=== PATIENT | male | born 1965 | race Caucasian/White ===

== ENCOUNTER 2019-02-18 18:12 | Emergency (ER) | payer SELFPAY ==
[~2019-02-18] VITALS: Ht 175.3 cm; Wt 75.0 kg
--- NOTE | 2019-02-18 18:37 | NUR ---
PT PLACED ON HEART MONITOR, BP CUFF, PULSE OX. PT VERY ANXIOUS, DIFFICULT TO GET TO ANSWER QUESTIONS. PT STATES CP GONE, SLIGHT HEAVINESS TO MID CHEST REMAINS AND SOME EPIGASTRIC PAIN. EKG COMPLETED ON ARRIVAL. PT GIVEN WARM BLANKET, CALL LIGHT WITHIN REACH. PT MORE CALM AT THIS TIME. PT UPDATED ON POC.
[2019-02-18] MEDS ORDERED: ATOR-2 PO (18:42)
[2019-02-18] MEDS ORDERED: QUET25TA7 PO (18:42)
[2019-02-18] MEDS ORDERED: LEVO25TA4 PO (18:42)
[2019-02-18] MEDS ORDERED: PRAS5TAB3 PO (18:42)
[2019-02-18] MEDS ORDERED: ASPI-496 PO (18:42)
[2019-02-18] MEDS ORDERED: METF500T17 PO (18:42)
[2019-02-18 18:58] LABS: BASOPHILS # (AUTO) 0.04 x10^3/uL (0-0.1); BASOPHILS % (AUTO) 1 % (0-1); EOSINOPHILS % (AUTO) 2 % (1-7); LYMPHOCYTES # (AUTO) 3.09 x10^3/uL (1-3.4); LYMPHOCYTES % (AUTO) 45 % (22-44); MD NO; MEAN CORPUSCULAR HEMOGLOBIN 33.3 pg (27.5-34.5); MEAN CORPUSCULAR HGB CONC 34.5 g/dL (33.2-36.2); MEAN CORPUSCULAR VOLUME 96.5 fL (81-97); MEAN PLATELET VOLUME 10.5 fL (7.4-10.4); MONOCYTES # (AUTO) 0.61 x10^3/uL (0.2-0.8); MONOCYTES % (AUTO) 9 % (2-9); NEUTROPHILS # (AUTO) 3.04 x10^3/uL (1.8-6.8); NEUTROPHILS % (AUTO) 44 % (42-75); PLATELET COUNT 203 x10^3/uL (130-400); RED CELL DISTRIBUTION WIDTH 13.5 % (9.4-14.8)
[2019-02-18 19:08] LABS: INTERNATIONAL NORMALIZED RATIO 0.96 (0.93-1.1); PROTHROMBIN TIME 10.1 Seconds (9.6-11.5)
[2019-02-18 19:10] LABS: ALBUMIN 4.1 g/dL (3.4-5.0); ANION GAP 10 mmol/L (5-15); CALCIUM 8.9 mg/dL (8.5-10.1); CHLORIDE 102 mmol/L (98-107); CREATININE 1.05 mg/dL (0.7-1.3)
--- NOTE | 2019-02-18 19:12 | NUR ---
pt standing at bs states feels better standing, pt c/o anxiety, no needs at this time
[2019-02-18 19:14] LABS: TROPONIN I < 0.015 ng/mL (0.000-0.045)
[2019-02-18 19:16] VITALS: BP 106/73
--- NOTE | 2019-02-18 20:14 | NUR ---
PT UP AMBULATING TO BR WITHOUT STEADY GAIT. ERP NOTIFIED.
== END 2019-02-18 20:42 | disposition home or self-care (01) ==
LOC: ED 20:36
DX: R07.89 Other chest pain (principal); F10.120 Alcohol abuse with intoxication, uncomplicated; Z72.9 Problem related to lifestyle, unspecified; F17.200 Nicotine dependence, unspecified, uncomplicated
CPT/HCPCS: 36415; 71045; 80048; 80307; 82040; 84484; 85025; 85610; 93005; 99284